=== PATIENT | male | born 1950 | race Caucasian/White ===

== ENCOUNTER 2025-05-03 16:11 | Emergency (ER) | payer OTHER, MEDICARE, SELFPAY ==
[2025-05-03] VITALS (25 sets, daily range): BP systolic 0–145; BP diastolic 0–88; PULSE 0–131; RESP 4–21; O2SAT 65–100; BMI 26.7
--- NOTE | ~2025-05-03 | XR_ITS ---
EXAMINATION: XR CHEST CLINICAL INFORMATION: surgical airway COMPARISON: None available. TECHNIQUE: Frontal view of the chest was obtained. FINDINGS: There is a tracheostomy tube with its tip approximately 4.4 cm above the jerman. Heart size and the great vessels are normal caliber. The lungs are expanded without acute pneumonic process. There is extensive left chest wall subcutaneous emphysema. There is small lateral chest wall pneumothorax . No gross bony abnormality seen. XR/XR chest 1V IMPRESSION: There is small moderate left pneumothorax with significant left anterior and lateral chest wall subcutaneous emphysema. There is a tracheostomy tube in satisfactory position. The lungs are otherwise clear. Electronically signed by: Yovany Ramesh MD 05/03/2025 05:18 PM EDT
--- NOTE | 2025-05-03 16:12 | ECG_ITS ---
Test Reason : DELGADJ Blood Pressure : */* mmHG Vent. Rate : 118 BPM Atrial Rate : 118 BPM P-R Int : 138 ms QRS Dur : 82 ms QT Int : 320 ms P-R-T Axes : 62 270 104 degrees QTcB Int : 448 ms Sinus tachycardia cannot exclude old Inferior infarct , age undetermined Possible Anterolateral infarct , age undetermined Abnormal ECG No previous ECGs available Referred By: Arslan Stone Electronically Signed By: SPENSER AMBROCIO
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
[2025-05-03 16:45] LABS: Hematocrit 36.3 % (42.0-52.0); Hemoglobin 12.1 g/dl (14.0-18.0); Mean Corpuscular HGB Conc 33.3 g/dl (31.0-36.0); Mean Corpuscular Hemoglobin 33.6 pg (27.0-33.0); Mean Corpuscular Volume 100.8 fL (80.0-98.0); NRBC Abs Auto 0.020 X10*3/uL (0.0-0.012); NRBC Pct Auto 0.2 /100WBC (0.0-0.2); Platelet Count 200 X10*3/uL (160-400); Red Blood Count 3.60 X10*6/uL (4.60-5.80); White Blood Count 9.9 X10*3/uL (4.8-10.8)
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
[2025-05-03 16:51] LABS: INTERNATIONAL NORM RATIO 1.1 (0.9-1.1); Prothrombin Time 13.1 SEC (10.9-12.4)
[2025-05-03 17:02] LABS: Alanine Aminotransferase 63 U/L (0-40); Albumin Level 2.7 g/dL (3.5-5.0); Alkaline Phosphatase 85 U/L (39-117); Anion Gap 15 (12-20); Aspartate Amino Transferase 144 U/L (5-37); Blood Urea Nitrogen 8 mg/dL (9-16); Calcium 7.1 mg/dL (8.4-10.2); Carbon Dioxide 21 mmol/L (22-29); Chloride 102 mmol/L (96-108); Creatinine Clr Calc Pharmacy 53.6; Estimated Glomerular Filt Rate > 60; Magnesium 2.4 mg/dL (1.6-2.6); Potassium 4.1 mmol/L (3.3-5.1); Sodium 134 mmol/L (135-145); Total Protein 6.2 g/dL (6.5-8.0)
[2025-05-03 17:09] LABS: Troponin-I High Sensitivity 4.0 ng/L (<3.5-35.0)
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
[2025-05-03 18:09] LABS: Atypical Lymph Absolute Manual 0.9 x10*3/uL; Atypical Lymphs Percent Manual 9 % (0-6); Band Neutrophils Percent 4 % (3-5); Basophils Abs Manual 0.1 X10*3/uL (0.0-0.2); Basophils Percent Manual 1 % (0-2); Eosinophils Absolute Manual 0.2 X10*3/uL (0.0-0.4); Eosinophils Percent Manual 2 % (0-4); Lymphocytes Absolute Manual 2.5 X10*3/uL (1.2-4.9); Lymphocytes Percent Manual 25 % (20-40); Metamyelocytes Absolute 0.1 X10*3/uL; Metamyelocytes Percent 1 %; Monocytes Absolute Manual 0.7 X10*3/uL (0.1-1.2); Monocytes Percent Manual 7 % (2-11); Myelocytes Absolute 0.1 X10*/uL; Myelocytes Percent 1 %; Neutrophils Absolute Manual 5.3 X10*3/uL (2.0-8.3); Neutrophils Percent Manual 50 % (45-73)
[2025-05-03 18:10] LABS: Macrocytosis 1+ (5-14) /OIF; RBC Morphology NOTED
[2025-05-03 18:11] LABS: Large Platelet PRESENT
--- NOTE | 2025-05-03 18:15 | PC.NURSE ---
Spoke w/ [facility] (Tissue Donation Coordinator) at this time. Patient will be accepted. Case #[id number].
--- NOTE | 2025-05-03 20:37 | PC.NURSE ---
call received from [facility] requesting to confirm if the patient has been relocated to the [facility] and if there was any additional contact info for the son
== END 2025-05-04 00:58 | disposition expired ==
PROVIDERS: Physician Assistant; Emergency Provider Emergency Medicine
DX: I46.9 Cardiac arrest, cause unspecified (principal); J93.9 Pneumothorax, unspecified; R00.0 Tachycardia, unspecified; Z79.899 Other long term (current) drug therapy
CPT/HCPCS: 36415; 36556; 71045; 76604; 76705; 76937; 80053; 80307; 83735; 84484; 85007; 85025; 85027; 85610; 93005; 93308; 96365; 96367; 99284; 99291; 99292; J2543

== ENCOUNTER → 2025-05-03 16:12 | Outpatient (BNV) | payer BC, SELFPAY | PROVIDERS: Emergency Provider Emergency Medicine; Visit Provider Internal Medicine | DX: R00.0 Tachycardia, unspecified (principal); R94.31 Abnormal electrocardiogram [ECG] [EKG] | CPT/HCPCS: 93010 ==

== ENCOUNTER → 2025-05-03 16:27 | Outpatient (BNV) | payer BC, SELFPAY | PROVIDERS: Emergency Provider Emergency Medicine; Visit Provider Radiology Diagnostic Radiology | DX: J93.83 Other pneumothorax (principal) | CPT/HCPCS: 71045 ==

== ENCOUNTER → 2025-05-03 16:55 | Outpatient (BNV) | payer BC, SELFPAY | PROVIDERS: Emergency Provider Emergency Medicine; Visit Provider Surgery | DX: S09.93XA Unspecified injury of face, initial encounter (principal); V89.2XXA Person injured in unspecified motor-vehicle accident, traffic, initial encounter | CPT/HCPCS: 31603; 99285 ==